=== PATIENT | male | born 1995 | race Caucasian/White ===

== ENCOUNTER 2016-11-24 15:52 | Emergency (ER) | payer OTHER ==
[~2016-11-24] VITALS: Ht 157.5 cm; Wt 67.0 kg
[2016-11-24 15:54] VITALS: Ht 157.5 cm; Wt 67.0 kg
[2016-11-24] MEDS ORDERED: IBUPROFEN 600 MG TAB PO ONE (16:30)
[2016-11-24] MEDS ORDERED: CALCIUM CARBONATE 500 MG CHEW TAB PO ONE (16:30)
--- NOTE | 2016-11-24 17:00 | RADRPT ---
PROCEDURE: XR Chest. CLINICAL INDICATION: chest pain, cough TECHNIQUE: Single frontal view of the chest was obtained COMPARISON: None FINDINGS: The heart and mediastinum are within normal limits. The lungs are clear. There is no pleural effusion or pneumothorax. RPTAT: AA IMPRESSION: No acute disease. .John Aguilar MD, MD Date Time Electronically viewed and signed by .John Aguilar MD, on 11/24/2016 17:00 .S/
--- NOTE | 2016-11-24 18:05 | ERD ---
ER Documentation Chief Complaint Date/Time DATE: 11/24/16 TIME: 18:03 Chief Complaint CP X 4 DAYS HPI This 20-year-old male presents from his PCPs office for a chest pain workup. 21 -year-old male who is completely healthy otherwise. Last 4 days he has had a dull chest pain. He stated started the night after he ate something that he thinks might have been bad and he had pain the next day. Since then he is only had a dull ache in his substernal chest. He has no radiation of the pain and no shortness of breath. No nausea and vomiting. ROS All systems reviewed and are negative except as per history of present illness. PMhx/Soc Medical and Surgical Hx: pt denies Medical Hx, pt denies Surgical Hx Hx Alcohol Use: No Hx Substance Use: No Hx Tobacco Use: No Physical Exam Vitals Vital Signs Date Time Temp Pulse Resp B/P Pulse Ox O2 Delivery O2 Flow Rate FiO2 11/24/16 15:54 98.1 61 20 144/77 99 Physical Exam Const: [] No distress Head: Atraumatic Eyes: Normal Conjunctiva ENT: Normal External Ears, Nose and Mouth. Neck: Full range of motion..~ No meningismus. Resp: Clear to auscultation bilaterally Cardio: Regular rate and rhythm, no murmurs Abd: Soft, non tender, non distended. Normal bowel sounds Skin: No petechiae or rashes Back: No midline or flank tenderness Ext: No cyanosis, or edema Neur: Awake and alert Psych: Normal Mood and Affect Results 24 hrs Laboratory Tests Test 11/24/16 16:40 Troponin I < 0.012ng/ml Current Medications Medications (Trade) Dose Ordered Sig/Dilcia Route PRN Reason Start Time Stop Time Status Last Admin Dose Admin Calcium Carbonate (Tums) 1,000 mg ONCE ONCE PO 11/24/16 16:30 11/24/16 16:33 DC 11/24/16 16:55 Ibuprofen (Motrin) 600 mg ONCE ONCE PO 11/24/16 16:30 11/24/16 16:33 DC 11/24/16 16:42 Procedures/MDM 21-year-old male is very low risk for acute coronary syndrome with no signs of cardiac ischemia. Negative troponin per more likely diagnoses are acid reflux or GI irritation. Possible costochondritis. We did discharge her with Zantac and naproxen and primary care follow-up. Return precautions for any return of chest pain. He was given calcium carbonate and ibuprofen in the emergency room. His pain did decrease. EKG interpretation: Normal sinus rhythm, rate of 60, normal axis, normal intervals, no ST or T-wave changes concerning for acute ischemia. Normal EKG Chest x-ray interpretation: I see no acute process. No fractures, no widened mediastinum, pneumothorax or pulmonary edema no infiltrates. Departure Diagnosis: Primary Impression: Chest pain Condition: Stable SUSANA ISRAEL DO Nov 24, 2016 18:05
[2016-11-24] MEDS ORDERED: NAPR-688 PO (18:07)
[2016-11-24] MEDS ORDERED: RANI150T9 PO (18:07)
== END 2016-11-24 19:42 | disposition home or self-care (01) ==
LOC: FTE 15:52
DX: R07.9 Chest pain, unspecified (principal)
CPT/HCPCS: 71010; 84484; 93005; Z7610